=== PATIENT | female | born 1960 | race African-American/Black ===

== ENCOUNTER 2021-07-10 13:18 | Emergency (ER) | payer OTHER ==
[~2021-07-10] VITALS: Ht 162.6 cm; Wt 54.5 kg
[2021-07-10 14:40] VITALS: BP 146/77
== END 2021-07-10 15:40 | disposition home or self-care (01) ==
LOC: EMS 13:18
DX: M25.561 Pain in right knee (principal); M79.89 Other specified soft tissue disorders; F17.210 Nicotine dependence, cigarettes, uncomplicated
CPT/HCPCS: 99283

== ENCOUNTER 2023-01-01 05:37 | Emergency (ER) | payer OTHER ==
[~2023-01-01] VITALS: Ht 162.6 cm; Wt 72.7 kg
[2023-01-01 05:45] VITALS: BP 127/72
[2023-01-01] MEDS ORDERED: LIDOCAINE 1% 20 ML VIAL SQ ONE (06:15)
[2023-01-01] MEDS ORDERED: PERTUSS(ACELL),DIPH,TET VAC/PF 0.5 ML SYRINGE IM. ONE (06:15)
[2023-01-01] MEDS ORDERED: CEPH-558 PO (07:03)
== END 2023-01-01 21:27 | disposition home or self-care (01) ==
LOC: EMS 05:38
DX: S71.112A Laceration without foreign body, left thigh, initial encounter (principal); S91.312A Laceration without foreign body, left foot, initial encounter; F17.210 Nicotine dependence, cigarettes, uncomplicated; X99.1XXA Assault by knife, initial encounter; Y93.89 Activity, other specified; Y92.89 Other specified places as the place of occurrence of the external cause; Y99.8 Other external cause status
CPT/HCPCS: 99283; 73552; 73590; 90715; 90471; 12002; J3490

== ENCOUNTER 2024-02-15 20:12 | Emergency (ER) | payer OTHER ==
[~2024-02-15] VITALS: Ht 157.5 cm; Wt 72.7 kg
[~2024-02-15 20:12] MED LIST: CEPH-558 PO
[2024-02-15 20:16] VITALS: BP 138/88; PULSE 71; RESP 16; TEMP 97.5
[2024-02-15] MEDS ORDERED: IBUP-1492 PO (22:30)
[2024-02-15] MEDS ORDERED: BACTDSB PO (22:30)
[2024-02-15] MEDS ORDERED: CEPH-558 PO (22:30)
[2024-02-15] MEDS: IBUPROFEN 600 MG TABLET PO ONE (22:54)
[2024-02-15] MEDS: CefTRIAXone SODIUM 1 GM/VIAL IM ONE (22:55)
[2024-02-15] MEDS: LIDOCAINE/PF 1% 2 ML VIAL IM ONE (22:55)
== END 2024-02-15 22:59 | disposition home or self-care (01) ==
LOC: EMS 20:12
DX: L03.114 Cellulitis of left upper limb (principal); F17.210 Nicotine dependence, cigarettes, uncomplicated
CPT/HCPCS: 99283; 96372; J0696; J3490